=== PATIENT | female | born 1945 | race Caucasian/White ===

== ENCOUNTER 2025-02-08 19:28 | Inpatient (IN) | payer MEDICARE, BC ==
[2025-02-08] MEDS: LORazepam 1 MG Tab PO ONE (19:50)
[2025-02-08 19:54] LABS: HEMATOCRIT 36.8 % (33.0-47.0); HEMOGLOBIN 12.1 g/dL (12.0-16.0); MEAN CORPUSCULAR HEMOGLOBIN 26.2 pg (26.0-32.0); MEAN CORPUSCULAR HGB CONC 32.9 g/dL (32.0-36.0); MEAN CORPUSCULAR VOLUME 79.8 fL (78.0-93.0); PLATELET COUNT,PLT 156 x10^3/uL (130-400); RED BLOOD CELL COUNT 4.61 x10^6/uL (4.00-5.50); WHITE BLOOD CELL COUNT,WBC 7.3 x10^3/uL (4.0-10.0)
[2025-02-08 19:59] LABS: APPEARANCE,URINE CLEAR (CLEAR); BILIRUBIN,URINE NEGATIVE (NEGATIVE); COLOR,URINE YELLOW (YELLOW); GLUCOSE,URINE NEGATIVE (NEGATIVE); KETONES,URINE NEGATIVE (NEGATIVE); LEUKOCYTE ESTERASE,URINE TRACE (NEGATIVE); NITRITE,URINE NEGATIVE (NEGATIVE); OCCULT BLOOD,URINE MODERATE (NEGATIVE); PROTEIN,URINE 30 mg/dL (NEGATIVE); UROBILINOGEN,URINE 0.2 EU/dL (0.2)
[2025-02-08 20:15] LABS: ANISOCYTOSIS 1+ SLIGHT; BAND PERCENT MAN 3 % (0-6); EOSINOPHILS ABSOLUTE MAN 0.1 x10^3/uL (0.0-0.5); EOSINOPHILS PERCENT MAN 1 % (0-4); LYMPHOCYTES ABSOLUTE MAN 0.5 x10^3/uL (1.0-4.8); LYMPHOCYTES PERCENT MAN 7 % (25-50); MONOCYTES ABSOLUTE MAN 1.4 x10^3/uL (0.0-0.8); MONOCYTES PERCENT MAN 19 % (2-11); NEUTROPHILS ABSOLUTE MAN 5.3 x10^3/uL (1.8-7.7); PLATELET COUNT ESTIMATE ADEQUATE; SEG NEUTROPHILS PERCENT MAN 70 % (50-80)
[2025-02-08 20:16] LABS: A/G RATIO 1.03; ALANINE AMINOTRANSFERASE,ALT 13 U/L (14-59); ALBUMIN 3.6 g/dL (3.4-5.0); ALKALINE PHOSPHATASE 114 U/L (46-116); ANION GAP 13.1 mmol/L (5-15); ASPARTATE AMNIOTRANSFERASE,AST 23 U/L (15-37); BILIRUBIN TOTAL 0.3 mg/dL (0.2-1.0); BLOOD UREA NITROGEN,BUN 17 mg/dL (7-18); CALCIUM 8.6 mg/dL (8.5-10.1); CARBON DIOXIDE,CO2 26 mmol/L (21-32); CHLORIDE,CL 102 mmol/L (98-107); CREATININE 0.7 mg/dL (0.55-1.02); ESTIMATED GFR 88 mL/min (>=60); GLUCOSE RANDOM 127 mg/dL (70-99); POTASSIUM,K 3.1 mmol/L (3.5-5.1); PROTEIN TOTAL,TP 7.1 g/dL (6.4-8.2); SODIUM,NA 138 mmol/L (136-145)
[2025-02-08 20:20] LABS: BACTERIA,URINE FEW /HPF (NOT SEEN); MUCUS,URINE FEW /LPF (NOT SEEN); RBC,URINE 0-5 /HPF (NOT SEEN); SQUAMOUS EPITHELIAL CELLS,UR MODERATE /HPF (NOT SEEN); WBC,URINE 0-5 /HPF (NOT SEEN)
[2025-02-08] MEDS ORDERED: Acetaminophen 325 MG Tab PO PRN (21:59)
[2025-02-08] MEDS: risperiDONE 0.25 MG Tab PO SCH (22:58)
[2025-02-08] MEDS: Potassium Chloride 10 MEQ Tab.ER PO ONE (22:58)
[2025-02-08] MEDS: traZODone 50 MG Tab PO SCH (22:59)
[2025-02-08] MEDS: cefTRIAXone 1 GM Vial IVPUSH SCH (23:19)
[2025-02-09 07:14] LABS: CALCIUM 8.6 mg/dL (8.5-10.1); CREATININE 0.6 mg/dL (0.55-1.02); EST CRCL DRUG DOSING (CG) 69.53 mL/min; POTASSIUM,K 3.4 mmol/L (3.5-5.1)
[2025-02-09 07:18] LABS: ANION GAP 9.4 mmol/L (5-15)
[2025-02-09] MEDS: Diltiazem 240 MG Cap.ER PO SCH (08:38)
[2025-02-09] MEDS: Benztropine 0.5 MG Tab PO SCH (08:38)
[2025-02-09] MEDS: risperiDONE 1 MG Tab PO SCH (08:38)
[2025-02-09] MEDS: LORazepam 0.5 MG Tab PO SCH (08:38)
[2025-02-09] MEDS: Enoxaparin 40 MG/0.4 ML Syringe SUBCUT SCH (20:49)
[2025-02-10] MEDS: Haloperidol Lactate 5 MG/ML SDV IV PRN (19:25)
[2025-02-11] MEDS ORDERED: risperiDONE 1 MG Tab PO SCH (14:00)
[2025-02-11] MEDS: Cephalexin 500 MG Cap PO SCH (20:05)
[2025-02-12 10:39] VITALS: BP 131/65; PULSE 82
== END 2025-02-12 09:45 | disposition home or self-care (01) | DRG 689 ==
LOC: VM.ED 19:28 → VM.MS 20:39 → OBSVTOIN 02-09 16:30
PROVIDERS: ADMIT Family Medicine; ATTEND Family Medicine
DX: R41.0 Disorientation, unspecified (principal); F03.911 Unspecified dementia, unspecified severity, with agitation; N39.0 Urinary tract infection, site not specified; G93.41 Metabolic encephalopathy; I48.11 Longstanding persistent atrial fibrillation; F03.918 Unspecified dementia, unspecified severity, with other behavioral disturbance; E87.6 Hypokalemia; Z79.899 Other long term (current) drug therapy
CPT/HCPCS: 36415; 80048; 80053; 81001; 82140; 85025; 87086; 87088; 87186; 96374; 96376; 97161-GP; 99284; 99285; A9270-GY; G0378; J0696; J1630; J1650; Q3014

== ENCOUNTER 2025-04-05 20:58 | Emergency (ER) | payer MEDICARE, BC | END 2025-04-05 22:44 | LOC: VM.ED 20:58 | DX: S06.0X0A Concussion without loss of consciousness, initial encounter (principal); Z79.899 Other long term (current) drug therapy; W18.39XA Other fall on same level, initial encounter; Y93.89 Activity, other specified | CPT/HCPCS: 70450; 99283; 99284 ==